=== PATIENT | male | born 1995 | race Caucasian/White ===

== ENCOUNTER 2021-05-28 05:47 | Day surgery (SDC) | payer MEDICAID ==
[~2021-05-28 05:47] MED LIST: Midazolam 1 MG/ML 2 ML SDV ONE; fentaNYL 100 MCG/2 ML SDV ONE
[2021-05-28] MEDS ORDERED: Midazolam 1 MG/ML 2 ML SDV IV ONE ×7 (05:48→06:48)
[2021-05-28] MEDS ORDERED: fentaNYL 100 MCG/2 ML SDV IV ONE ×3 (05:48→06:40)
[2021-05-28] MEDS ORDERED: Dextrose 5%-0.45% NaCl 1,000 ML IV SCH (06:00)
[2021-05-28] MEDS ORDERED: Sodium Chloride 0.9% 10 ML Syringe FLUSH PRN (06:00)
--- NOTE | 2021-05-28 07:34 | OR ---
DATE: 05/28/2021 PROCEDURES: Total colonoscopy, terminal ileoscopy, narrow band imaging, and multiple pinch biopsies. INSTRUMENT USED: PCF-H190DL Olympus video colonoscope. PREMEDICATIONS: Fentanyl 100 mcg intravenous, Versed 4 mg intravenous. Procedure done under BP monitor, radiation monitor, and pulse oximetry. INDICATION: The patient with chronic diarrhea and rectal bleeding unexplained. Colonoscopic examination is done for detection of any polypoid lesions and removal. Biopsies to be obtained for microscopic colitis, endoscopic hemostasis therapy if needed. DESCRIPTION OF PROCEDURE: Initial rectal exam was unremarkable. Rigid anoscopy was normal. The colonoscope was passed with ease up to and beyond the ileocecal junction to visualize normal-appearing terminal ileum. NBI views were obtained. Multiple pinch biopsies were obtained and sent for histopathology. Photographs were taken of the normal-appearing cecum. No bleeding was noted from any of the visualized areas at the commencement of the examination. The bowel preparation was found to be adequate, [place] scale 3 in all the regions, total score 9. No stricture. No vascular ectasia. No large isolated ulcerations seen. No evidence of diffuse inflammatory bowel disease in the form of friability, contact bleeding, or ulcerations. No polyp or tumor mass identified. Probing the proximal sides of folds and flexures, using adequate distention and clearing up the stool material, withdrawal of the scope was made. Multiple pinch biopsies were taken from the normal-appearing mucosa of the mid transverse colon, mid descending colon, and rectosigmoid, and sent for any histopathologic evidence of microscopic colitis. No bleeding was noted from any of the visualized areas at the completion of examination. IMPRESSION: Normal study. The patient tolerated the procedure well. [facility] /[id number]
== END 2021-05-28 09:03 | disposition home or self-care (01) ==
LOC: DL.ENDO 05:47
PROVIDERS: ATTEND Internal Medicine Gastroenterology
DX: K52.9 Noninfective gastroenteritis and colitis, unspecified (principal); K62.5 Hemorrhage of anus and rectum; E66.09 Other obesity due to excess calories; F41.1 Generalized anxiety disorder; Z98.890 Other specified postprocedural states; Z68.42 Body mass index [BMI] 45.0-49.9, adult
CPT/HCPCS: 45380; J2250; J3010; J7042

== ENCOUNTER 2025-02-16 13:36 | Emergency (ER) | payer SELFPAY ==
[2025-02-16] MEDS: Tetracaine HCl/PF 0.5% 4 ML Bottle EYERT ONE (15:17)
[2025-02-16] MEDS: Erythromycin Base 0.5% Ophth Oint 3.5 GM Tube EYERT ONE (15:18)
[2025-02-16] MEDS: Fluorescein 1 MG Ophth Strip EYERT ONE (15:21)
[2025-02-16] MEDS: Sodium Chloride 0.9% Irrigation 500 ML Container IRR ONE (15:22)
== END 2025-02-16 15:20 | disposition home or self-care (01) ==
LOC: DL.ED 13:36
DX: S05.01XA Injury of conjunctiva and corneal abrasion without foreign body, right eye, initial encounter (principal); E66.9 Obesity, unspecified; Z86.16 Personal history of COVID-19; Z79.899 Other long term (current) drug therapy; W50.0XXA Accidental hit or strike by another person, initial encounter
CPT/HCPCS: 99283; A9270; J1596; J3490